=== PATIENT | male | born 1960 | race Caucasian/White ===

== ENCOUNTER 2017-10-15 07:43 | Outpatient (CLI) | payer OTHER ==
--- NOTE | 2017-10-15 17:46 | MRI Report ---
EXAM: MRI LUMBAR SPINE WITHOUT CONTRAST EXAM DATE: 10/15/2017 08:24 AM. CLINICAL HISTORY: 57-year-old male, two-month history of low back pain radiating to left leg COMPARISON: None. TECHNIQUE: Multiplanar, multisequence T1-weighted and fluid-sensitive sequences of the lumbar spine f rom T12 to S1 without contrast. Other: None. FINDINGS: Spinal Cord: The conus terminates at L1-L2. The conus medullaris and cauda equina are unremarkable. Alignment: No scoliosis or spondylolisthesis. Bone Marrow: Five [id number]-[id number] lumbar vertebral bodies are assumed. No gross fractures . Diffusely mottled appearance of the bone marrow, differential considerations including both benign and maligna nt marrow replacing processes, may represent fatty replacement of the marrow. No bone marrow edema. Disk Levels/Facets: T12-L1: Unremarkable. L1-L2: Unremarkable. L2-L3: Mild disk height loss and desiccation. Mild diffuse disk bulge. No significant central canal o r foraminal narrowing. L3-L4: Mild disk height loss and desiccation. Moderate diffuse disk bulge with superimposed left fora flavia protrusion. No significant central canal narrowing. Mhjl-vi-[id number] left foraminal narrowing. No right foraminal narrowing. In addition, the left foraminal protrusion may have mass effect on the exiting left L3 nerve at this level (series 601 image 16). Recommend clinical correlation for left L3 radicular symptoms. L4-L5: Mild diffuse disk bulge with an annular fissure. No significant central canal narrowing. Mild left foraminal narrowing. No right foraminal narrowing.. L5-S1: No significant central canal or foraminal narrowing. Musculature: Normal. No edema or fatty atrophy. Other: The partially visualized retroperitoneum is unremarkable. IMPRESSION: 1. Yxrf-xb-[id number] degenerative spondylosis involving levels L2-L3 through L4-L5, as detailed above and summarized below. 2. L3-L4 level demonstrates no significant central canal narrowing. [id number]-gv-htmwkhrc left foraminal n arrowing. No right foraminal narrowing. In addition, the left foraminal disk protrusion may have mass effect on the exiting left L3 nerve at this level (series 601 image 16). Recommend clinical correlat ion for left L3 radicular symptoms. 3. L4-L5 level demonstrates no significant central canal narrowing. Mild left foraminal narrowing. No right foraminal narrowing. 4. No significant central canal or foraminal narrowing at remaining lumbar levels. 5. Diffusely mottled appearance of the bone marrow, differential considerations including both benign and malignant marrow replacing processes, may represent fatty replacement of the marrow. Comment: The following findings are so common in adults without low back pain that while we report th eir presence, they must be interpreted with caution and in the context of the clinical situation. (Re natalya Salgado et al, Spine 2001) Prevalence of findings in patients without low back pain: Disk degeneration (any evidence): 92% Disk desiccation/T2 signal loss: 83% Disk height loss: 56% Disk bulge: 64% Disk protrusion: 32% Annular tear/high intensity zone: 38% [facility] Referring Provider Line: [phone] SITE ID: [id number]
== END 2017-10-15 07:44 | disposition home or self-care (01) ==
LOC: DI 07:43
PROVIDERS: ATTEND Student in an Organized Health Care Education/Training Program
DX: M47.896 Other spondylosis, lumbar region (principal); M51.26 Other intervertebral disc displacement, lumbar region
CPT/HCPCS: 72148